=== PATIENT | female | born 1990 | race Caucasian/White ===

== ENCOUNTER 2018-10-21 14:54 | Outpatient (CLI) | payer MEDICAID, SELFPAY ==
[2018-10-21 15:44] LABS: Glucose,1 Hr (Glucola) 98 mg/dL (80-140)
[2018-10-21 16:13] LABS: Abs Immature Grans 0.05 k/cumm (0.0-0.09); Absolute Monocyte Count 0.74 k/cumm (0.11-0.7); Basophils % 0.2; Eosinophils % 0.6; HGB 13.3 g/dL (12.0-15.5); Immature Grans % 0.4; Lymphocytes % 15.1; Mean Corp. HGB Concentration 33.3 g/dL (32.0-36.0); Mean Corpuscular Hemoglobin 29.4 pg (27.0-33.0); Mean Corpuscular Volume 88.5 fL (80-95); Mean Platelet Volume 9.7 fL (8.0-11.0); Monocytes % 5.9; Neutrophils % 77.8; Platelet Count 324 x1000/uL (130-400); RBC 4.52 m/cumm (4.00-5.20); RBC Distribution Width 13.3 % (11.7-14.6); White Blood Cell Count 12.62 k/cumm (4.4-10.8)
[2018-10-21 16:22] LABS: Absolute Basophil Count 0.03 k/cumm (0.0-0.2); Absolute Eosinophil Count 0.08 k/cumm (0.0-0.7); Absolute Lymphocyte Count 1.91 k/cumm (1.2-3.4); Absolute Neutrophil Count 9.82 k/cumm (1.2-6.7)
[2018-10-21 16:39] LABS: TSH (W/Ref FT4) 2.97 uIU/mL (0.36-3.74)
[2018-10-24 10:31] LABS: Hepatitis C Ab w Rflx HCV PCR Negative (NEGAT)
[2018-10-24 10:35] LABS: HIV-1/2 Ag & Ab Screen Negative (NEGAT); Hepatitis B Surface Ag Negative (NEGAT)
[2018-10-24 11:05] LABS: Varicella IgG Antibody Positive
[2018-10-24 12:43] LABS: Rubella IgG Ab (UVM) Positive
== END 2018-10-21 15:14 ==
PROVIDERS: PCP Family Medicine; Visit Provider Advanced Practice Midwife
DX: Z34.91 Encounter for supervision of normal pregnancy, unspecified, first trimester (principal); Z11.59 Encounter for screening for other viral diseases; Z11.4 Encounter for screening for human immunodeficiency virus [HIV]; Z01.84 Encounter for antibody response examination; Z11.3 Encounter for screening for infections with a predominantly sexual mode of transmission
CPT/HCPCS: 36415; 80307; 82950; 86787; 86803; 86850; 86900; 86901; 87340; 87389; 87491; 87591; 84443; 85025; 86762; 87086

== ENCOUNTER 2018-10-21 16:19 | Outpatient (REF) | payer MEDICAID, SELFPAY ==
[2018-10-21 17:17] LABS: *AMPHETAMINES SCREEN URINE Negative (Negative); *BARBITURATES SCREEN URINE Negative (Negative); *BENZODIAZEPINES SCREEN URINE Negative (Negative); Cannabinoids THC Negative (Negative); Cocaine Screen,Urine Negative (Negative); METHADONE URINE SCREEN Negative (Negative); OPIATES URINE SCREEN Negative (Negative)
[2018-10-21 17:18] LABS: Tricyclic Antidepressants Negative (Negative)
[2018-10-24 14:54] LABS: Chlamydia Result Negative; GC Result Negative; Specimen Description CERVIX
[2018-10-27 08:59] LABS: Buprenorphine Negative; Norbuprenorphine Negative
== END 2018-10-21 16:39 ==
LOC: NCHCN 16:19
PROVIDERS: PCP Family Medicine; Visit Provider Advanced Practice Midwife
DX: Z34.91 Encounter for supervision of normal pregnancy, unspecified, first trimester (principal); Z11.3 Encounter for screening for infections with a predominantly sexual mode of transmission
CPT/HCPCS: 80307; 87491; 87591; 87086

== ENCOUNTER 2018-12-05 01:01 | Outpatient (CLI) | payer MEDICAID, SELFPAY ==
--- NOTE | 2018-12-05 13:55 | DI.US_ITS ---
EXAM: US OB 2-3 TRIMESTER CLINICAL HISTORY: routine pnc Z34.90 SUPERVISION NORMAL . TECHNIQUE: Ultrasound performed using standard protocol. COMPARISON: No exams were available for comparison FINDINGS: There is a single living intrauterine gestation. Estimated gestational age is 19 weeks 3 days. No f etal or placental abnormalities are identified. Please refer to the obstetrical ultrasound worksheet for complete details. IMPRESSION: Single living intrauterine gestation. The estimated sonographic age is 19 weeks 3 days.
[2018-12-06 15:36] LABS: Syphilis Total Ab w/Reflex Nonreactive (Nonreactive)
== END 2018-12-05 01:21 ==
PROVIDERS: PCP Family Medicine; Visit Provider Advanced Practice Midwife
DX: Z34.92 Encounter for supervision of normal pregnancy, unspecified, second trimester (principal)
CPT/HCPCS: 36415; 76805; 86780

== ENCOUNTER 2019-02-17 00:20 | Outpatient (CLI) | payer MEDICAID, SELFPAY ==
[2019-02-17 14:41] LABS: Abs Immature Grans 0.07 k/cumm (0.0-0.09); Absolute Basophil Count 0.01 k/cumm (0.0-0.2); Absolute Eosinophil Count 0.08 k/cumm (0.0-0.7); Absolute Lymphocyte Count 1.59 k/cumm (1.2-3.4); Absolute Monocyte Count 0.76 k/cumm (0.11-0.7); Absolute Neutrophil Count 7.88 k/cumm (1.2-6.7); Basophils % 0.1; Eosinophils % 0.8; HCT 34.2 % (36.0-46.0); HGB 11.6 g/dL (12.0-15.5); Immature Grans % 0.7; Lymphocytes % 15.3; Mean Corp. HGB Concentration 33.9 g/dL (32.0-36.0); Mean Corpuscular Hemoglobin 30.8 pg (27.0-33.0); Mean Corpuscular Volume 90.7 fL (80-95); Monocytes % 7.3; Neutrophils % 75.8; Platelet Count 282 x1000/uL (130-400); RBC 3.77 m/cumm (4.00-5.20); RBC Distribution Width 13.7 % (11.7-14.6); White Blood Cell Count 10.39 k/cumm (4.4-10.8)
[2019-02-17 14:52] LABS: Glucose,1 Hr (Glucola) 100 mg/dL (80-140)
== END 2019-02-17 00:40 ==
PROVIDERS: PCP Family Medicine; Visit Provider Obstetrics & Gynecology
DX: Z34.93 Encounter for supervision of normal pregnancy, unspecified, third trimester (principal)
CPT/HCPCS: 36415; 82950; 85025

== ENCOUNTER 2019-02-17 16:21 | Outpatient (REF) | payer MEDICAID, SELFPAY ==
--- NOTE | 2019-02-17 15:40 | SKI_PTH ---
PATIENT: Carolina Neal LOC: [facility] U#:[id number] AGE/SX: 28/F ROOM: RE02/17/[address]: Raimundo Lipscomb MD : 1990 BED: DIS: 02/17/2019 SPEC #: [id number] RECD: 02/17/19 18:03 STATUS: NELLY REQ #: [id number] ISAIAH: 02/17/19 15:[address]: Raimundo Lipscomb DEPT: Surgical Specimen RECD BY: Elizabeth Melendez ENTERED: 02/17/19 18:04 SP TYPE: ROSIBEL ARMSTRONG DR: Caleb Newman Tissues: 1 - SKIN BIOPSY(SHAVE/PUNCH) Procedures: SKIN LEVEL 4 Comments: [id number]
== END 2019-02-17 16:41 ==
LOC: LBN 16:21
PROVIDERS: PCP Family Medicine; Visit Provider Obstetrics & Gynecology
DX: D22.61 Melanocytic nevi of right upper limb, including shoulder (principal)
CPT/HCPCS: 88305

== ENCOUNTER 2019-03-31 14:25 | Outpatient (REF) | payer MEDICAID, SELFPAY | END 2019-03-31 14:45 | LOC: LBN 14:25 | PROVIDERS: PCP Family Medicine; Visit Provider Obstetrics & Gynecology Gynecology | DX: Z34.93 Encounter for supervision of normal pregnancy, unspecified, third trimester (principal); Z36.85 Encounter for antenatal screening for Streptococcus B | CPT/HCPCS: 87081 ==

== ENCOUNTER 2019-04-07 21:21 | Outpatient (REF) | payer MEDICAID, SELFPAY ==
[2019-04-07 16:56] LABS: *AMPHETAMINES SCREEN URINE Negative (Negative); *BARBITURATES SCREEN URINE Negative (Negative); *BENZODIAZEPINES SCREEN URINE Negative (Negative); Cannabinoids THC Negative (Negative); Cocaine Screen,Urine Negative (Negative); METHADONE URINE SCREEN Negative (Negative); OPIATES URINE SCREEN Negative (Negative)
[2019-04-07 17:30] LABS: Tricyclic Antidepressants Negative (Negative)
[2019-04-12 12:49] LABS: Buprenorphine Negative; Norbuprenorphine Negative
== END 2019-04-07 21:41 ==
LOC: LBN 21:21
PROVIDERS: PCP Family Medicine; Visit Provider Obstetrics & Gynecology
DX: Z34.93 Encounter for supervision of normal pregnancy, unspecified, third trimester (principal)
CPT/HCPCS: 80307

== ENCOUNTER 2019-04-14 11:24 | Observation (INO) | payer MEDICAID, SELFPAY ==
--- NOTE | 2019-04-14 12:37 | W.PM.HP.N ---
Date of service: 04/14/19 Time of Service: 12:37 Assessment and Plan Assessment and plan (1) Breech presentation: Status: Acute Assessment and plan: Breech presentation at term. This was confirmed by ultrasound today. Please refer to operative note. History of Present Illness History of Present Illness Chief Complaint: Breech presentation Narrative: 28-year-old G2, P1 at 37.0 weeks is brought in today for external cephalic version secondary to breech presentation. has been uncomplicated today. Review of Systems All systems reviewed & are unremarkable except as noted in HPI and below PFSH Social History (Updated 03/10/19 @ 18:46 by Avis Danielle MD) Smoking/Tobacco Use Status: Never Alcohol Intake: former (socially prior to knowledge of .) Substance use type: does not use Household members: spouse, children and other Details: H-Alexis, S-Farooq Female Reproductive History Menstrual Age of Menarche: 15 Duration of menses: 3-5 days control method: none History History 2 Para 1 Hx # Term Pregnancies 1 Multiple births 0 Hx # Pregnancies 0 Ectopic pregnancies 0 AB induced 0 Hx Number of Living Children AB spontaneous 0 Past Pregnancies Del. Date GA/Weeks # Outcome Route Wgt Sex Labor Lgth Anesthesia Location Prov Complic Unknown 03/25/17 41 No Successful vaginal 8 lb 7 oz Male 16 hrs a. anupama Delivery Date: On 03/10/19 @ 18:41 Avis Danielle Farooq Delivery Date: 03/25/17 On 10/21/18 @ 14:07 RUY RUBY iol for postdates yet pt started on her own, thus w/o pitocin. Meds Home Medications and Allergies Home Medications Medication Instructions Recorded Confirmed Type PNV cmb#95-ferrous fumarate-FA 1 ea PO 10/09/16 04/07/19 History [Prenavite] cholecalciferol (vitamin D3) 400 unit PO DAILY 05/06/17 04/07/19 History [Vitamin D3] Allergies Allergy/AdvReac Type Severity Reaction Status Date / Time LACTOSE INTOLERANT AdvReac Unknown BLOATING, Uncoded 04/07/19 15:58 GAS , UNCOMFORTABLE FEELING Exam GI Other: Bedside ultrasound confirms hollis breech presentation. Please refer to operative note
--- NOTE | 2019-04-14 12:39 | W.PM.OP ---
Date of service: 04/14/19 Time of Service: 12:39 Operative Note Operative Note DATE OF PROCEDURE: 04/14/19 PRE-OP DIAGNOSIS: 37 weeks. Hira breech presentation POST-OP DIAGNOSIS: other Unstable lie PROCEDURE: External cephalic version SURGEON: Raimundo Lipscomb ANESTHESIA: none ESTIMATED BLOOD LOSS: 0 PATHOLOGY: none sent Patient's condition: stable Procedure Description: After informed consent regarding risks of surgery the patient was placed in supine position. An ultrasound was performed. Prior to the onset of the procedure the lie change dramatically from breech to vertex and then back to breech presentation. No uterine relaxant was required. External cephalic version was performed easily with the head did not engage in the pelvis and the fetus returned nearly immediately to breech presentation post procedure. Due to unstable lie my recommendation would be to not proceed with ECV at this point. We will plan to bring her in at 39 weeks for induction of labor and reassess presentation at that time. If required ECV will be performed followed immediately by induction of labor. Patient agreed to this plan of care and was discharged home. NST was reactive post procedure.
== END 2019-04-14 12:45 | disposition home or self-care (01) ==
PROVIDERS: Admitting Provider Obstetrics & Gynecology; PCP Family Medicine; Visit Provider Obstetrics & Gynecology
DX: O32.0XX0 Maternal care for unstable lie, not applicable or unspecified (principal); Z3A.37 37 weeks gestation of pregnancy; O26.893 Other specified pregnancy related conditions, third trimester
CPT/HCPCS: 59412; 59025; 99223; G0378

== ENCOUNTER 2019-04-28 07:15 | Inpatient (IN) | payer MEDICAID, SELFPAY ==
[2019-04-28 08:16] LABS: HCT 37.1 % (36.0-46.0); HGB 12.5 g/dL (12.0-15.5); Mean Corp. HGB Concentration 33.7 g/dL (32.0-36.0); Mean Corpuscular Hemoglobin 30.7 pg (27.0-33.0); Mean Corpuscular Volume 91.2 fL (80-95); Mean Platelet Volume 9.7 fL (8.0-11.0); Platelet Count 251 x1000/uL (130-400); RBC 4.07 m/cumm (4.00-5.20); RBC Distribution Width 13.6 % (11.7-14.6); White Blood Cell Count 9.55 k/cumm (4.4-10.8)
[2019-04-28] MEDS: Lactated Ringers 1,000 ML 125 ML IV ×3 (09:34→15:11)
--- NOTE | 2019-04-28 13:04 | W.PM.HP.N ---
Date of service: 04/28/19 Time of Service: 18:53 Assessment and Plan Assessment and plan (1) Breech presentation: Status: Acute (2) Polyhydramnios: Status: Acute Assessment and plan: Plan to proceed with external cephalic version. If successful will proceed with induction of labor. Informed consent was obtained. As mentioned previously AVA was measured to be 28 cm. We discussed concerns for rupture of membranes and cord prolapse and that primary section may be needed for unstable lie if ECV is unsuccessful. History of Present Illness History of Present Illness Chief Complaint: Breech presentation at term. Narrative: 28 year old @ 39 weeks admitted for external cephalic version and induction of labor. The patient underwent external cephalic version approximately 2 weeks ago but lie was unstable and the fetus converted back to breech presentation. The patient was noted to have polyhydramnios with an AVA of 30. The remainder of her care has been uncomplicated. She had been counseled on the risks related to external cephalic version. Ultrasound prior to procedure confirmed hollis breech presentation and AVA measured 28 cm today. Review of Systems All systems reviewed & are unremarkable except as noted in HPI and below PFSH Social History (Updated 03/10/19 @ 18:46 by Avis Danielle MD) Smoking/Tobacco Use Status: Never Alcohol Intake: former (socially prior to knowledge of .) Substance use type: does not use Household members: spouse, children and other Details: H-Alexis, S-Farooq Female Reproductive History Menstrual Age of Menarche: 15 Duration of menses: 3-5 days control method: none History History 2 Para 1 Hx # Term Pregnancies 1 Multiple births 0 Hx # Pregnancies 0 Ectopic pregnancies 0 AB induced 0 Hx Number of Living Children AB spontaneous 0 Past Pregnancies Del. Date GA/Weeks # Outcome Route Wgt Sex Labor Lgth Anesthesia Location Prov Complic Unknown 03/25/17 41 No Successful vaginal 8 lb 7 oz Male 16 hrs a. anupama Delivery Date: On 03/10/19 @ 18:41 Avis Danielle Farooq Delivery Date: 03/25/17 On 10/21/18 @ 14:07 RUY RUBY iol for postdates yet pt started on her own, thus w/o pitocin. Meds Home Medications and Allergies Home Medications Medication Instructions Recorded Confirmed Type PNV cmb#95-ferrous fumarate-FA 1 ea PO 10/09/16 04/20/19 History [Prenavite] cholecalciferol (vitamin D3) 400 unit PO DAILY 05/06/17 04/28/19 History [Vitamin D3] Allergies Allergy/AdvReac Type Severity Reaction Status Date / Time LACTOSE INTOLERANT AdvReac Unknown BLOATING, Uncoded 04/20/19 11:14 GAS , UNCOMFORTABLE FEELING Results Labs Result diagrams: 04/28/19 08:05 Labs: Laboratory Results - last 24 hr 04/28/19 04/28/19 08:05 08:05 WBC 9.55 RBC 4.07 Hgb 12.5 Hct 37.1 MCV 91.2 MCH 30.7 MCHC 33.7 RDW 13.6 Plt Count 251 MPV 9.7 Patient ABO/Rh A Positive Antibody Screen Negative
[2019-04-28] MEDS: Sodium Citrate 30 ML CUP PO (13:45)
[2019-04-28] MEDS: ceFAZolin 2 GM/50 ML BAG IVPB (13:45)
[2019-04-28 15:21] VITALS: BP 104/35; PULSE 86; RESP 20; TEMP 36.3; O2SAT 94
[2019-04-28 15:26] VITALS: BP 114/54; PULSE 84; RESP 26; O2SAT 93
[2019-04-28 15:31] VITALS: BP 113/49; PULSE 76; RESP 22; O2SAT 93
[2019-04-28 15:36] VITALS: BP 132/51; PULSE 71; RESP 23; O2SAT 94
[2019-04-28 15:49] VITALS: BP 108/47; PULSE 61; RESP 19; TEMP 36.4; O2SAT 93
[2019-04-28] MEDS: Ondansetron 4 MG/2 ML VIAL IVP (18:05)
[2019-04-28] MEDS: Normal Saline Flush 10 ML SYR IVP (18:07)
--- NOTE | 2019-04-28 19:01 | W.PM.OP ---
Date of service: 04/28/19 Time of Service: 10:00 Operative Note Operative Note DATE OF PROCEDURE: 04/28/19 PRE-OP DIAGNOSIS: 1) 39 weeks. Breech Presentation 2) Polyhydramnios POST-OP DIAGNOSIS: same PROCEDURE: External cephalic version SURGEON: Raimundo Lipscomb ANESTHESIA: none ESTIMATED BLOOD LOSS: 0 COMPLICATIONS: None Patient was transported to: floor Patient's condition: stable Findings: 1. Ultrasound confirmed hollis breech presentation prior to procedure. AVA measures 28 cm. Procedure Description: A preprocedure NST was reactive. The fetus was confirmed to be in hollis breech presentation on ultrasound. The breech was elevated from the pelvis and head was flexed. Rotation to longitudinal lie and cephalic presentation was accomplished but the head remained unengaged. Pitocin was started for induction of labor and an abdominal binder was placed in an attempt to maintain position. Postprocedure NST was reactive. The procedure was tolerated well.
--- NOTE | 2019-04-28 19:06 | PGE_ITS ---
Date of Service Date of service: 04/28/19 Time of Service: 13:00 Assessment and Plan Assessment and plan (1) Breech presentation: Status: Acute (2) Polyhydramnios: Status: Acute (3) Unstable lie of fetus: Status: Acute Assessment and plan: I reviewed my findings with the patient and her leeanne cowan. Currently the fetus is in transverse back down presentation. I discussed with the patient that this is not a deliverable presentation and that repeat attempts at ECV appear to be futile at this point due to the instability of the lie and polyhydramnios. I discussed concerns about cord prolapse should rupture of membranes occur. My recommendation at this point would be to proceed with primary section. Risks of surgery including hemorrhage, infection and injury to other organ such as bowel and bladder were discussed with the patient. All questions were answered to the patient satisfaction and consent for surgery was obtained. Subjective Subjective Interval history since last seen: I did reevaluate the patient. The NST remained category 1 from the time of her ECV. On initial exam cervix was 1 to 2 cm. Patient reports moderate contractions. A repeat ultrasound showed the fetus to be in transverse back down presentation with head on maternal right. Objective Objective Clinical Data: Vital Signs Temperature 97.5 F L 04/28/19 15:49 Pulse 61 04/28/19 15:49 Respiratory Rate 19 04/28/19 15:49 Blood Pressure 108/47 L 04/28/19 15:49 Pulse Oximetry 93 L 04/28/19 15:49 Respiratory End-tidal CO2 29 04/28/19 15:49 Oxygen Delivery Method Room Air 04/28/19 15:49 Oxygen Flow Rate 0 04/28/19 15:49 Pain Level 0 04/28/19 15:49 Intake & Output 04/27/19 04/28/19 04/28/19 23:59 11:59 23:59 Intake Total 1554.167 / 1554.167 Output Total 900 / 900 Balance 654.167 / 654.167 Weight 214 lb Intake: IV 1554.167 / 1554.167 Output: Urine 100 / 100 Estimated Blood Loss 800 / 800 Other: Urine Color Pale Yellow Emesis Description None Laboratory Results WBC 9.55 k/cumm (4.4-10.8) 04/28/19 08:05 RBC 4.07 m/cumm (4.00-5.20) 04/28/19 08:05 Hgb 12.5 g/dL (12.0-15.5) 04/28/19 08:05 Hct 37.1 % (36.0-46.0) 04/28/19 08:05 MCV 91.2 fL (80-95) 04/28/19 08:05 MCH 30.7 pg (27.0-33.0) 04/28/19 08:05 MCHC 33.7 g/dL (32.0-36.0) 04/28/19 08:05 RDW 13.6 % (11.7-14.6) 04/28/19 08:05 Plt Count 251 x1000/uL (130-400) 04/28/19 08:05 MPV 9.7 fL (8.0-11.0) 04/28/19 08:05 Patient ABO/Rh A Positive 04/28/19 08:05 Antibody Screen Negative 04/28/19 08:05
--- NOTE | 2019-04-28 19:17 | ROE_ITS ---
Date of service: 04/28/19 Time of Service: 16:00 Operative Note Operative Note DATE OF PROCEDURE: 04/28/19 PRE-OP DIAGNOSIS: 1. Unstable lie at 39 weeks gestation. 2. Failed ECV 3. Polyhydramnios POST-OP DIAGNOSIS: same PROCEDURE: Primary section SURGEON: Raimundo Lipscomb ASSISTING SURGEON: Catalino Yuen ANESTHESIA: spinal ESTIMATED BLOOD LOSS: 800 PATHOLOGY: none sent COMPLICATIONS: None Patient was transported to: PACU Patient's condition: stable Findings: 1. Fetus in transverse back down presentation 2. Mild uterine atony Procedure Description: The patient was taken to the operating room and after adequate spinal anesthesia was obtained the patient was placed in supine position with a left lateral tilt. The patient was prepped and draped in the usual sterile manner. A Pfannenstiel incision was made with a #10 scalpel. Sharp dissection was carried down to the underlying layer of fascia. The fascia was incised in the midline and the incision was extended laterally in either direction with Gomez scissors. The superior and inferior aspects of the fascial incision were dissected off the underlying layer rectus muscles using both blunt and sharp dissection. The rectus muscles were divided in the midline and the peritoneum was entered sharply. The peritoneal incision was extended superiorly and inferiorly with blunt and sharp dissection. The fetus was noted to be in transverse presentation and breech version was performed prior to hysterotomy. The lower uterine segment was incised in a transverse manner with a scalpel. The incision was carried laterally in either direction via stretch. The infant was in footling breech presentation at this point. The was delivered atraumatically. The mouth and nose were suctioned. The cord was clamped and cut. The was handed off to the awaiting convertible power shovel operator. The placenta was manually extracted. The uterus was cleared of all clots and debris. The hysterotomy was closed with a running locked stitch of #1 chromic. A second indicating layer of #1 chromic in a Lambert stitch was used to complete the repair. The bladder flap was reapproximated with a running stitch of 3-0 Vicryl. The peritoneum was closed with a running stitch of 2-0 Vicryl. The subfascial space was thoroughly inspected and was noted to be hemostatic. The fascia was closed with a running stitch of 0 Vicryl. The subcutaneous tissues were closed with interrupted sutures of 3-0 Vicryl. The skin was closed with a running subcuticular stitch of 4-0 Monocryl and Dermabond was applied. The procedure was concluded at this point. Sponge, lap and needle counts were correct at the conclusion of the procedure. The patient tolerated the procedure well and was transferred to PACU in stable condition.
[2019-04-28] MEDS: Ketorolac 30 MG/ML VIAL IVP (21:20)
[2019-04-28] MEDS: Lactated Ringers 1,000 ML 120 ML IV (22:57)
[2019-04-29] MEDS: Ketorolac 30 MG/ML VIAL IVP ×2 (03:42→10:02)
[2019-04-29 06:55] LABS: HGB 11.4 g/dL (12.0-15.5); Mean Corp. HGB Concentration 33.5 g/dL (32.0-36.0); Mean Corpuscular Hemoglobin 30.9 pg (27.0-33.0); Mean Corpuscular Volume 92.1 fL (80-95); Mean Platelet Volume 9.6 fL (8.0-11.0); Platelet Count 237 x1000/uL (130-400); RBC 3.69 m/cumm (4.00-5.20); RBC Distribution Width 13.6 % (11.7-14.6); White Blood Cell Count 14.06 k/cumm (4.4-10.8)
--- NOTE | 2019-04-29 07:18 | W.PM.PROGNOT ---
Date of Service Date of service: 04/29/19 Time of Service: 07:18 Assessment and Plan Assessment and plan (1) S/P section: Status: Acute Assessment and plan: POD1 s/p primary section for unstable lie. Routine post op care. Encourage ambulation Remove zhang catheter May shower this morning. Subjective Subjective Interval history since last seen: Doing well. Pain well controlled. Has not yet ambulated. Tolerating regular diet. Objective Objective Clinical Data: Abnormal lab results 04/29/19 Range/Units 06:40 WBC 14.06 H D (4.4-10.8) k/cumm RBC 3.69 L (4.00-5.20) m/cumm Hgb 11.4 L (12.0-15.5) g/dL Hct 34.0 L (36.0-46.0) % Vital Signs Temperature 97.5 F L 04/28/19 15:49 Pulse 61 04/28/19 15:49 Respiratory Rate 19 04/28/19 15:49 Blood Pressure 108/47 L 04/28/19 15:49 Pulse Oximetry 93 L 04/28/19 15:49 Respiratory End-tidal CO2 29 04/28/19 15:49 Oxygen Delivery Method Room Air 04/28/19 15:49 Oxygen Flow Rate 0 04/28/19 15:49 Pain Level 0 04/29/19 03:42 Intake & Output 04/28/19 04/28/19 04/29/19 11:59 23:59 11:59 Intake Total 2254.167 / 2254.167 Output Total 900 / 900 Balance 1354.167 / 1354.167 Weight 214 lb Intake: IV 2254.167 / 2254.167 Output: Urine 100 / 100 Estimated Blood Loss 800 / 800 Other: Urine Color Pale Yellow Emesis Description None Laboratory Results WBC 14.06 k/cumm (4.4-10.8) H D 04/29/19 06:40 RBC 3.69 m/cumm (4.00-5.20) L 04/29/19 06:40 Hgb 11.4 g/dL (12.0-15.5) L 04/29/19 06:40 Hct 34.0 % (36.0-46.0) L 04/29/19 06:40 MCV 92.1 fL (80-95) 04/29/19 06:40 MCH 30.9 pg (27.0-33.0) 04/29/19 06:40 MCHC 33.5 g/dL (32.0-36.0) 04/29/19 06:40 RDW 13.6 % (11.7-14.6) 04/29/19 06:40 Plt Count 237 x1000/uL (130-400) 04/29/19 06:40 MPV 9.6 fL (8.0-11.0) 04/29/19 06:40 Patient ABO/Rh A Positive 04/28/19 08:05 Antibody Screen Negative 04/28/19 08:05
--- NOTE | 2019-04-29 10:57 | W.PM.PROGNOT ---
Date of Service Date of service: 04/29/19 Time of Service: 10:58 Assessment and Plan Assessment and plan (1) Postop check: Status: Acute Assessment and plan: incision has a bandage on and no bleeding. uterus is u-2 and firm. is ambulating well and stable. Objective Objective Clinical Data: Abnormal lab results 04/29/19 Range/Units 06:40 WBC 14.06 H D (4.4-10.8) k/cumm RBC 3.69 L (4.00-5.20) m/cumm Hgb 11.4 L (12.0-15.5) g/dL Hct 34.0 L (36.0-46.0) % Vital Signs Temperature 97.5 F L 04/28/19 15:49 Pulse 61 04/28/19 15:49 Respiratory Rate 19 04/28/19 15:49 Blood Pressure 108/47 L 04/28/19 15:49 Pulse Oximetry 93 L 04/28/19 15:49 Respiratory End-tidal CO2 29 04/28/19 15:49 Oxygen Delivery Method Room Air 04/28/19 15:49 Oxygen Flow Rate 0 04/28/19 15:49 Pain Level 4 04/29/19 10:02 Intake & Output 04/28/19 04/28/19 04/29/19 11:59 23:59 11:59 Intake Total 2254.167 / 2254.167 2049 Output Total 900 / 900 Balance 1354.167 / 4496.749 5465 / 2050 Weight 214 lb Intake: IV 2254.167 / 2254.167 2049 Output: Urine 100 / 100 Estimated Blood Loss 800 / 800 Other: Urine Color Pale Yellow Emesis Description None Laboratory Results WBC 14.06 k/cumm (4.4-10.8) H D 04/29/19 06:40 RBC 3.69 m/cumm (4.00-5.20) L 04/29/19 06:40 Hgb 11.4 g/dL (12.0-15.5) L 04/29/19 06:40 Hct 34.0 % (36.0-46.0) L 04/29/19 06:40 MCV 92.1 fL (80-95) 04/29/19 06:40 MCH 30.9 pg (27.0-33.0) 04/29/19 06:40 MCHC 33.5 g/dL (32.0-36.0) 04/29/19 06:40 RDW 13.6 % (11.7-14.6) 04/29/19 06:40 Plt Count 237 x1000/uL (130-400) 04/29/19 06:40 MPV 9.6 fL (8.0-11.0) 04/29/19 06:40 Patient ABO/Rh A Positive 04/28/19 08:05 Antibody Screen Negative 04/28/19 08:05
[2019-04-29] MEDS: oxyCODONE 5 mg/Acetaminophen 325 mg TAB PO ×3 (14:08→22:30)
[2019-04-29] MEDS: Ibuprofen 600 MG TAB PO (18:15)
[2019-04-30] MEDS: oxyCODONE 5 mg/Acetaminophen 325 mg TAB PO ×3 (04:00→17:06)
[2019-04-30] MEDS: Docusate Sodium 100 MG CAP PO ×2 (07:53→17:07)
[2019-04-30] MEDS: Ibuprofen 600 MG TAB PO ×2 (07:53→21:26)
--- NOTE | 2019-04-30 11:18 | W.PM.PROGNOT ---
Date of Service Date of service: 04/30/19 Time of Service: 11:18 Subjective Subjective Interval history since last seen: The patient reports that she developed a headache this morning. The headache is absent when she is laying down but when she sits up she has a headache in the frontal area. Her neck is supple and there is no nuchal rigidity noted. There is no fevers or chills. Her incision is healing well, abdomen soft nontender uterus is U- 2. Reflexes are normal at 2+ and she has minimal pitting edema. Assessment plan patient is postop day #2, suspect she may have a spinal headache, no evidence of infection. We will check a CBC and will talk with anesthesia to see if this is the case. She may be a candidate for caffeine treatment and possibly a blood patch. She also reports that her bleeding is minimal and otherwise she is doing well. Objective Objective Clinical Data: Vital Signs Temperature 97.5 F L 04/28/19 15:49 Pulse 61 04/28/19 15:49 Respiratory Rate 19 04/28/19 15:49 Blood Pressure 108/47 L 04/28/19 15:49 Pulse Oximetry 93 L 04/28/19 15:49 Respiratory End-tidal CO2 29 04/28/19 15:49 Oxygen Delivery Method Room Air 04/28/19 15:49 Oxygen Flow Rate 0 04/28/19 15:49 Pain Level 3 04/30/19 08:53 Intake & Output 04/29/19 04/29/19 04/30/19 11:59 23:59 11:59 Intake Total 2049 Balance 2049 Intake: IV 2049 Laboratory Results WBC 14.06 k/cumm (4.4-10.8) H D 04/29/19 06:40 RBC 3.69 m/cumm (4.00-5.20) L 04/29/19 06:40 Hgb 11.4 g/dL (12.0-15.5) L 04/29/19 06:40 Hct 34.0 % (36.0-46.0) L 04/29/19 06:40 MCV 92.1 fL (80-95) 04/29/19 06:40 MCH 30.9 pg (27.0-33.0) 04/29/19 06:40 MCHC 33.5 g/dL (32.0-36.0) 04/29/19 06:40 RDW 13.6 % (11.7-14.6) 04/29/19 06:40 Plt Count 237 x1000/uL (130-400) 04/29/19 06:40 MPV 9.6 fL (8.0-11.0) 04/29/19 06:40 Patient ABO/Rh A Positive 04/28/19 08:05 Antibody Screen Negative 04/28/19 08:05
[2019-04-30] MEDS: Acetaminophen 325 MG TAB 650 MG PO (11:44)
[2019-04-30 11:54] LABS: Abs Immature Grans 0.04 k/cumm (0.0-0.09); Absolute Basophil Count 0.02 k/cumm (0.0-0.2); Absolute Eosinophil Count 0.07 k/cumm (0.0-0.7); Absolute Lymphocyte Count 1.76 k/cumm (1.2-3.4); Absolute Monocyte Count 0.94 k/cumm (0.11-0.7); Absolute Neutrophil Count 7.52 k/cumm (1.2-6.7); Basophils % 0.2; Eosinophils % 0.7; HCT 34.9 % (36.0-46.0); HGB 11.5 g/dL (12.0-15.5); Immature Grans % 0.4 %; Mean Corpuscular Hemoglobin 31.1 pg (27.0-33.0); Mean Corpuscular Volume 94.3 fL (80-95); Mean Platelet Volume 9.7 fL (8.0-11.0); Monocytes % 9.1; Neutrophils % 72.6; Platelet Count 218 x1000/uL (130-400); RBC Distribution Width 14.2 % (11.7-14.6); White Blood Cell Count 10.35 k/cumm (4.4-10.8)
[2019-05-01] MEDS: Ibuprofen 600 MG TAB PO (05:26)
[2019-05-01] MEDS: oxyCODONE 5 mg/Acetaminophen 325 mg TAB PO (05:26)
[2019-05-01] MEDS: Docusate Sodium 100 MG CAP PO ×2 (05:27→13:28)
[2019-05-01 07:05] LABS: HCT 34.7 % (36.0-46.0); HGB 11.4 g/dL (12.0-15.5); Mean Corp. HGB Concentration 32.9 g/dL (32.0-36.0); Mean Corpuscular Hemoglobin 31.1 pg (27.0-33.0); Mean Corpuscular Volume 94.8 fL (80-95); Mean Platelet Volume 9.6 fL (8.0-11.0); Platelet Count 219 x1000/uL (130-400); RBC 3.66 m/cumm (4.00-5.20); White Blood Cell Count 9.56 k/cumm (4.4-10.8)
--- NOTE | 2019-05-01 09:13 | W.PM.PROGNOT ---
Date of Service Date of service: 05/01/19 Time of Service: 09:13 Assessment and Plan Assessment and plan (1) S/P section: Status: Acute Assessment and plan: Add incentive spirometer today. Will monitor O2 sats today. If no improvement through the day would consider CTA. Clinical suspicion for PE is low at this point however. (2) Spinal headache complicating labor and delivery, delivered, : Status: Acute Assessment and plan: I discussed her management with anesthesia. Will continue to follow conservatively for now. She did have some improvement with caffeine yesterday so will start her on Fioricet. Subjective Subjective Interval history since last seen: Patient continues to complain about a severe headache that increases with ambulation and when upright. In addition she reports mild dyspnea on exertion. Oxygen saturations have been between 92 and 95%. Incisional pain is well controlled. Exam GI Other: Incision is C/D/I Objective Objective Clinical Data: Abnormal lab results 04/30/19 05/01/19 Range/Units 11:43 06:50 RBC 3.70 L 3.66 L (4.00-5.20) m/cumm Hgb 11.5 L 11.4 L (12.0-15.5) g/dL Hct 34.9 L 34.7 L (36.0-46.0) % Absolute Neutrophils 7.52 H (1.2-6.7) k/cumm Absolute Monocytes 0.94 H (0.11-0.7) k/cumm Vital Signs Temperature 97.5 F L 04/28/19 15:49 Pulse 61 04/28/19 15:49 Respiratory Rate 19 04/28/19 15:49 Blood Pressure 108/47 L 04/28/19 15:49 Pulse Oximetry 93 L 04/28/19 15:49 Respiratory End-tidal CO2 29 04/28/19 15:49 Oxygen Delivery Method Room Air 04/28/19 15:49 Oxygen Flow Rate 0 04/28/19 15:49 Pain Level 8 05/01/19 05:26 Laboratory Results WBC 9.56 k/cumm (4.4-10.8) 05/01/19 06:50 RBC 3.66 m/cumm (4.00-5.20) L 05/01/19 06:50 Hgb 11.4 g/dL (12.0-15.5) L 05/01/19 06:50 Hct 34.7 % (36.0-46.0) L 05/01/19 06:50 MCV 94.8 fL (80-95) 05/01/19 06:50 MCH 31.1 pg (27.0-33.0) 05/01/19 06:50 MCHC 32.9 g/dL (32.0-36.0) 05/01/19 06:50 RDW 14.0 % (11.7-14.6) 05/01/19 06:50 Plt Count 219 x1000/uL (130-400) 05/01/19 06:50 MPV 9.6 fL (8.0-11.0) 05/01/19 06:50 Immature Gran % 0.4 % 04/30/19 11:43 Neutrophils % 72.6 04/30/19 11:43 Lymphocytes % 17.0 04/30/19 11:43 Monocytes % 9.1 04/30/19 11:43 Eosinophils % 0.7 04/30/19 11:43 Basophils % 0.2 04/30/19 11:43 Absolute Neutrophils 7.52 k/cumm (1.2-6.7) H 04/30/19 11:43 Absolute Lymphocytes 1.76 k/cumm (1.2-3.4) 04/30/19 11:43 Absolute Monocytes 0.94 k/cumm (0.11-0.7) H 04/30/19 11:43 Absolute Eosinophils 0.07 k/cumm (0.0-0.7) 04/30/19 11:43 Absolute Basophils 0.02 k/cumm (0.0-0.2) 04/30/19 11:43 Patient ABO/Rh A Positive 04/28/19 08:05 Antibody Screen Negative 04/28/19 08:05
[2019-05-01] MEDS: Butalbital/Acetaminophen/Caffeine 50/325/40 TAB PO ×2 (10:36→14:37)
== END 2019-05-01 15:35 | disposition home or self-care (01) | DRG 788 ==
PROVIDERS: Obstetrics & Gynecology; Admitting Provider Obstetrics & Gynecology; PCP Family Medicine; Visit Provider Obstetrics & Gynecology
PROC: 10D00Z1 Extraction of Products of Conception, Low, Open Approach (ICD-10-PCS; CPT 59514; principal; 2019-04-28 14:00)
DX: O64.8XX0 Obstructed labor due to other malposition and malpresentation, not applicable or unspecified (principal); O32.8XX0 Maternal care for other malpresentation of fetus, not applicable or unspecified; Z37.0 Single live birth; Z3A.39 39 weeks gestation of pregnancy; O75.89 Other specified complications of labor and delivery; O74.5 Spinal and epidural anesthesia-induced headache during labor and delivery
CPT/HCPCS: 59412; 59514; 36415; 85027; 86850; 86900; 86901; 99223; 99231; 99233; NC; 85025; G0378; J0131; J0690; J1100; J1885; J2370; J2405; J2590; J3010; J3490

== ENCOUNTER 2019-11-08 15:16 | Outpatient (REF) | payer MEDICAID, SELFPAY ==
--- NOTE | 2019-11-08 14:15 | PAPFT_PTH ---
PATIENT: Carolina Neal LOC: [facility] U#:[id number] AGE/SX: 28/F ROOM: RE11/08/[address]: Raimundo Lipscomb MD : 1990 BED: DIS: 11/08/2019 SPEC #: [id number] RECD: 11/09/19 09:35 STATUS: NELLY REQ #: [id number] ISAIAH: 11/08/19 14:[address]: Raimundo Lipscomb DEPT: [facility] Cytology RECD BY: Yeny Rollins ENTERED: 11/09/19 09:36 SP TYPE: PAPFT OTHR DR: Caleb Newman Tissues: 1 - CX/ENDOCX FOR PAP SMEARS Procedures: PAP THIN PREP/[facility] Screening Comments: [id number]
== END 2019-11-08 15:36 ==
LOC: LBN 15:16
PROVIDERS: PCP Family Medicine; Visit Provider Obstetrics & Gynecology
DX: R87.616 Satisfactory cervical smear but lacking transformation zone (principal)
CPT/HCPCS: 88142

== ENCOUNTER 2021-04-05 07:58 | Emergency (ER) | payer MEDICAID, SELFPAY ==
[2021-04-05] VITALS (17 sets, daily range): BP systolic 102–121; BP diastolic 61–79; PULSE 80–114; RESP 16–23; TEMP 36.6; O2SAT 93–100
--- NOTE | 2021-04-05 08:30 | DI.RAD_ITS ---
Exam(s) XR PORTABLE CHEST AP EXAM: XR PORTABLE CHEST AP CLINICAL HISTORY: cough, covid positive 2 weeks ago TECHNIQUE: 2D digital imaging was performed. COMPARISON: No exams were available for comparison FINDINGS: LUNGS: Clear. No pleural abnormality seen. HEART: Normal. MEDIASTINUM: Normal. BONES: Unremarkable. IMPRESSION: No acute pulmonary findings. DATA REPOSITORY: RADIATION DOSE DELIVERED:
--- NOTE | 2021-04-05 08:31 | W.ED.GENAD ---
Discharge Plan Disposition Patient Disposition: HOME Condition: Stable Discharge Details Clinical Impression: Sinusitis, acute Primary Care Provider: Caleb Newman ED Provider: Bigg Savage Home Meds and New Rx's Prescriptions: New amoxicillin-pot clavulanate [Augmentin] 875-125 mg tablet 1 tab PO BID Qty: 13 RF: 0 Continued multivitamin Tablet 1 tab PO DAILY RF: 0 ascorbate calcium (vitamin C) 500 mg tablet 500 mg PO DAILY RF: 0 vitamin B complex [B Complex-Vitamin B12] Tablet 1 tab PO DAILY RF: 0 cholecalciferol (vitamin D3) [Vitamin D3] 400 UNIT capsule 5,000 unit PO DAILY RF: 0 ibuprofen 200 mg Capsule 400 mg PO PRN PRNRF: 0 acetaminophen [Acetaminophen Extra Strength] 500 mg Tablet 500 mg PO PRN PRNRF: 0 Discharge Instructions Instructions: Sinusitis (ED) Additional Instructions: Please take full course of antibiotic as prescribed. Please drink plenty of fluids to stay hydrated. Allow for plenty of rest. You should maintain home isolation until you have had no symptoms for 24 hours. Please take ibuprofen over the counter. Take 600mg by mouth every 6 hours as needed for pain. Please take acetaminophen (tylenol) - 650mg every 6 hours by mouth as needed for pain. Please contact your primary care physician to arrange follow-up. Return to the ER immediately for any worsening or new concerning symptoms. Medical Decision Making 30-year-old female here with sinus congestion, sore throat, fever and headache over the past few days. Patient tested positive for Covid 2 weeks ago and had a few days of symptoms but then resolved. Patient saturating well in no respiratory distress. Normotensive but tachycardic on arrival. Patient has no neck stiffness or signs of meningitis. Patient appeared dehydrated on arrival and IV fluid bolus was administered. Heart rate improved significantly with IV fluid. Labs reviewed and leukocytosis noted. Considered strep pharyngitis, as patient has friend was recently strep positive. Rapid strep test negative. Suspect sinusitis. Given severity of symptoms, leukocytosis and persistent fever, I will initiate treatment with antibiotic. Initial dose of Augmentin was provided here and scription was sent to her pharmacy. Consider prolonged COVID-19 and recommended isolation until symptoms resolve. Usual customary discharge instructions were reviewed with patient. He was encouraged to return immediately should symptoms worsen or she develop new concerning symptoms. She was encouraged to follow-up with her primary care physician. Exam was medical screening exam was performed. Patient stable for discharge. HPI General Mode of arrival: ambulatory. Date/Time Provider Initiated Documentation: 04/05/21 08:05. Limitations to Documentation: no limitations. Information obtained by: patient. HPI Narrative: 30-year-old female presents with chief complaint of generally not feeling well. Patient notes she was diagnosed with Covid 2 weeks ago, she had symptoms that were fairly mild for a few days and then symptoms resolved. She was symptom-free until this week when she notes that she has had fever, sinus pressure, bilateral ear pain and sore throat as well as body aches. Symptoms have been present for the past 3 to 4 days. She has been controlling fever with ibuprofen but notes this morning it was 104. She denies significant cough. She does have some headache. No neck stiffness or pain. Patient notes she had bilateral axillary red itchy rash a few days ago but that this has resolved. No abdominal pain. She has had some nausea. No urinary symptoms. Patient denies tick bite the past year. Related Data Home Medications Medication Instructions Recorded Confirmed cholecalciferol (vitamin D3) 5,000 unit PO DAILY 05/06/17 04/05/21 [Vitamin D3] multivitamin 1 tab PO DAILY 11/08/19 04/05/21 ascorbate calcium (vitamin C) 500 500 mg PO DAILY 03/13/21 04/05/21 mg tablet vitamin B complex 1 tab PO DAILY 03/13/21 04/05/21 acetaminophen [Acetaminophen Extra 500 mg PO PRN PRN 04/05/21 04/05/21 Strength] amoxicillin-pot clavulanate 1 tab PO BID #13 tab 04/05/21 [Augmentin] ibuprofen 400 mg PO PRN PRN 04/05/21 04/05/21 Previous Rx's Medication Instructions Recorded amoxicillin-pot clavulanate 1 tab PO BID #13 tab 04/05/21 [Augmentin] Allergies Allergy/AdvReac Type Severity Reaction Status Date / Time LACTOSE INTOLERANT AdvReac Unknown BLOATING, Uncoded 04/05/21 08:08 GAS , UNCOMFORTABLE FEELING General Stated Complaint: Fever EVRA: 3 Review of Systems All systems reviewed & are unremarkable except as noted in HPI and below Constitutional Constitutional: Reports body ache(s), Reports fever(s) and Reports headache(s) ENT Ears, Nose, Mouth, and Throat: Denies dysphagia, Denies ear discharge, Reports otalgia, Reports headache(s), Reports nasal congestion, Denies neck pain and Reports sore throat Cardiovascular Cardiovascular: Reports dyspnea Respiratory Respiratory: Reports dyspnea Gastrointestinal Gastrointestinal: Denies dysphagia, Reports nausea and Denies vomiting Genitourinary Genitourinary: Denies dysuria Musculoskeletal Musculoskeletal: Denies neck pain Integumentary/Breasts Skin/Breast: Reports as per HPI Neurologic Neurologic: Reports headache(s) PFSH All Active Problems (Updated 04/05/21 @ 09:44 by Bigg Savage MD) Sinusitis, acute (Acute) Breast pain, left (Acute) Screening for malignant neoplasm of cervix (Acute) Diastasis recti (Acute) Pt's 2nd complicated by polyhydramnios. Medical History (Updated 04/05/21 @ 09:44 by Bigg Savage MD) Breast mass 3cm at 6 o'clock position beneath areola on R breast. Gen Surg referral submitted. Breast mass, right Breech presentation Polyhydramnios Unstable lie of fetus Surgical History (Updated 03/14/21 @ 20:26 by Avis Danielle MD) Biopsy of breast (07/08/17) right breast-benign S/P section 04/28/19. Breech presentation. 39w NAHOMI. 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 Date GA/Weeks # Outcome Route Wgt Sex Labor Lgth Anesthesia Location Prov Complic Unknown 03/25/17 41 No Successful vaginal 3827.186 g Male 16 hrs a. anupama 04/28/19 39 No Successful 3940.584 g Female [facility] Dr [place] Delivery Date: Avis Dumont Delivery Date: 03/25/17 iol for postdates yet pt started on her own, thus w/o pitocin. Jona Delgado Delivery Date: 04/28/19 Double footling Breech C/S. Polyhydramnios. 'Benita'. Avis Danielle Exam Const General: cooperative and no acute distress HENMT Ears: external ears normal, mastoids normal, no periauricular adenopathy and TM abnormal bulging bilaterally; not with effusion and not erythematous Face and sinus: face symmetric and sinus tenderness Mouth: moist mucous membranes Throat: posterior oropharynx abnormal erythema; no edema and no exudates Eyes Conjunctivae: normal conjunctivae Sclera: normal sclerae Neck Neck: full ROM, trachea midline and supple Resp Auscultation: clear to auscultation bilaterally, no rales, no rhonchi and no wheezes Cardio Rate: regular rate and not tachycardic Rhythm: regular rhythm GI Palpation: soft, not firm, no guarding, no masses, not rigid and nontender Skin General skin exam: no rashes or lesions noted Neuro General: patient alert, patient awake, patient oriented x3 and tone normal Extrem General: no edema Psych Appearance: grossly normal Mental Status: mental status grossly normal Speech and Movement: speech and movement normal Course Vital Signs Vital signs: Vital Signs Temperature 36.6 C 04/05/21 08:04 Pulse 114 H 04/05/21 08:04 Respiratory Rate 18 04/05/21 08:04 Blood Pressure 121/79 04/05/21 08:04 Pulse Oximetry 98 04/05/21 08:04 Temperature 36.6 C 04/05/21 08:04 Temperature Source Temporal Artery Scan 04/05/21 08:04 Pulse 114 H 04/05/21 08:04 Respiratory Rate 18 04/05/21 08:04 Respiratory Effort Non-Labored 04/05/21 08:11 Blood Pressure 121/79 04/05/21 08:04 Blood Pressure Position Sitting 04/05/21 08:04 Pulse Oximetry 98 04/05/21 08:04 Oxygen Delivery Method Room Air 04/05/21 08:04 Oxygen Flow Rate 0 04/05/21 08:04
[2021-04-05 08:33] LABS: Abs Immature Grans 0.05 10^3/uL (0.0-0.06); Absolute Eosinophil Count 0.02 10^3/uL (0.0-0.7); Basophils % 0.2; Eosinophils % 0.1; HCT 41.7 % (36.0-46.0); HGB 13.8 g/dL (11.2-15.7); Immature Grans % 0.3; Lactate 0.6 mmol/L (0.6-1.4); Lymphocytes % 7.9; MCH 29.1 pg (27.0-33.0); MCHC 33.1 % (32.0-36.0); MCV 87.8 fL (80-95); Monocytes % 7.6; Neutrophils % 83.9; Nucleated RBC 0 %; Platelet Count 319 10^3/uL (130-400); RBC 4.75 10^6/uL (3.93-5.22); RDW 12.6 % (11.7-14.6); RDW-SD 40.9 fL; WBC 17.12 10^3/uL (4.4-10.8)
[2021-04-05] MEDS: Lactated Ringers 1,000 ML 1000 ML IV (08:34)
[2021-04-05 08:39] LABS: Absolute Basophil Count 0.03 10^3/uL (0.0-0.2); Absolute Lymphocyte Count 1.35 10^3/uL (1.2-3.4); Absolute Neutrophil Count 14.36 10^3/uL (1.2-6.7)
[2021-04-05 08:53] LABS: ALT 23 U/L (14-59); AST 15 U/L (15-37); Albumin 3.5 g/dL (3.4-5.0); Alkaline Phosphatase 67 U/L (46-116); Anion Gap 11.1 mmol/L (3-11); BUN 10 mg/dL (7-18); Bilirubin, Total 0.6 mg/dL (0.2-1.0); CO2 21.9 mmol/L (21.0-32.0); CREATININE 0.8 mg/dL (0.55-1.02); Calcium 8.9 mg/dL (8.5-10.1); Chloride 102 mmol/L (98-107); Glucose 108 mg/dL (74-106); Potassium 3.6 mmol/L (3.5-5.1); Sodium 135 mmol/L (136-145); Total Protein 8.3 g/dL (6.4-8.2)
[2021-04-05 08:58] LABS: Troponin I < 50 ng/L (<or=60)
--- NOTE | 2021-04-05 09:21 | DI.VRAD_ITS ---
PROCEDURE INFORMATION: Exam: XR Chest Exam date and time: 04/05/2021 8:34 AM Age: 30 years old Clinical indication: Other: Cough, covid positive 2 weeks ago TECHNIQUE: Imaging protocol: XR of the chest. Views: 1 view. COMPARISON: No relevant prior studies available. FINDINGS: Lungs: Unremarkable. No consolidation. Pleural spaces: Unremarkable. No pleural effusion. No pneumothorax. Heart/Mediastinum: Unremarkable. No cardiomegaly. Bones/joints: Unremarkable. IMPRESSION: No acute findings. Dictated and Authenticated by: Norma Miranda MD. Ordering:HERMELINDA Pride MD
[2021-04-05] MEDS: Amoxicillin 875/Clav. 125 TAB PO (09:51)
--- NOTE | 2021-04-07 19:49 | W.ED.FU ---
Follow Up Plan: pt made aware regarding + group c strep, on augmentin, feeling improved
== END 2021-04-05 09:59 | disposition home or self-care (01) ==
PROVIDERS: Emergency Provider Student in an Organized Health Care Education/Training Program; PCP Family Medicine
DX: J02.0 Streptococcal pharyngitis (principal); R06.02 Shortness of breath; Z86.16 Personal history of COVID-19; R09.81 Nasal congestion; J02.9 Acute pharyngitis, unspecified; D72.829 Elevated white blood cell count, unspecified
CPT/HCPCS: 36415; 80053; 87880; 96360; 99283; 71045; 83605; 84484; 85025; 87081

== ENCOUNTER 2021-04-09 00:48 | Outpatient (CLI) | payer MEDICAID, SELFPAY ==
--- NOTE | 2021-04-09 07:45 | DI.MAMMO_ITS ---
Exam(s) MAMMO DIAGNOSTIC BI EXAM: MAMMO DIAGNOSTIC BI CLINICAL HISTORY: L sided breast pain,N64.4 TECHNIQUE: Mammograms were interpreted according to the usual protocol including computer analysis w [employer], a [employer] CAD system, tomosynthesis and C-view imaging. COMPARISON: No exams were available for comparison FINDINGS: The breasts are composed of scattered fibroglandular densities, Breast Density category B. The breast tissue is symmetric bilaterally. No suspicious masses or suspicious microcalcifications are seen. No skin thickening or abnormal axillary lymph nodes are seen. IMPRESSION: BI-RADS Category 1, Negative mammogram Yearly screening mammography is recommended at age 40 or sooner if clinically indicated. Breast Density - Category B, scattered fibroglandular densities. A negative radiographic report should not delay biopsy if a dominant or clinically suspicious mass is present. Up to ten percent of cancers are not identified on mammography. A negative report may reinforce clinical impression. Adenosis and dense breasts may obscure an underlying neoplasm. False positive reports average 6 to 10%. Patient will receive a letter notifying them of these results.
== END 2021-04-09 01:08 ==
PROVIDERS: PCP Family Medicine; Visit Provider Obstetrics & Gynecology Gynecology
DX: N64.4 Mastodynia (principal)
CPT/HCPCS: 77062; 77066; G0279

== ENCOUNTER → 2021-11-03 02:22 | Outpatient (CLI) | payer MEDICAID, SELFPAY ==
--- NOTE | 2021-11-03 | DI.RAD_ITS ---
Exam(s) XR ANKLE LT COMPLETE EXAM: XR ANKLE LT COMPLETE CLINICAL HISTORY: LT ANKLE SPRAIN, S93.402D TECHNIQUE: 2D digital imaging was performed of the left ankle. Three images were obtained. AP, lat eral and oblique views were obtained. COMPARISON: No exams were available for comparison FINDINGS: BONES: No acute fracture is present. No bony destructive lesion is seen. JOINTS:The ankle mortise is normally aligned. SOFT TISSUE: Normal. IMPRESSION: Unremarkable radiographs of the left ankle. DATA REPOSITORY: RADIATION DOSE DELIVERED:
== END ==
PROVIDERS: PCP Family Medicine; Visit Provider Family Medicine
DX: S93.402D Sprain of unspecified ligament of left ankle, subsequent encounter (principal); X58.XXXD Exposure to other specified factors, subsequent encounter
CPT/HCPCS: 73610

== ENCOUNTER 2022-06-05 02:54 | Outpatient (CLI) | payer MEDICAID, SELFPAY ==
[2022-06-05 14:59] LABS: Abs Immature Grans 0.03 10^3/uL (0.0-0.06); Absolute Basophil Count 0.02 10^3/uL (0.0-0.2); Absolute Eosinophil Count 0.07 10^3/uL (0.0-0.7); Absolute Lymphocyte Count 2.17 10^3/uL (1.2-3.4); Absolute Monocyte Count 0.79 10^3/uL (0.1-0.8); Absolute Neutrophil Count 8.15 10^3/uL (1.2-6.7); Basophils % 0.2; Eosinophils % 0.6; HCT 39.7 % (36.0-46.0); HGB 13.4 g/dL (11.2-15.7); Immature Grans % 0.3; Lymphocytes % 19.3; MCH 29.4 pg (27.0-33.0); MCHC 33.8 % (32.0-36.0); MCV 87 fL (80-95); MPV 8.9 fL (8.0-11.0); Neutrophils % 72.6; Platelet Count 267 10^3/uL (130-400); RBC 4.56 10^6/uL (3.93-5.22); RDW 12.7 % (11.7-14.6); RDW-SD 40.5 fL; WBC 11.23 10^3/uL (4.4-10.8)
[2022-06-05 15:45] LABS: Glucose,1 Hr (Glucola) 110 mg/dL (80-140)
[2022-06-07 15:17] LABS: HIV-1/2 Ag & Ab Screen Negative (Negative)
[2022-06-08 10:46] LABS: Rubella IgG Ab (UVM) Positive (See Note); Varicella IgG Antibody Positive (See Note)
[2022-06-08 11:25] LABS: Hepatitis B Surface Ag Negative (Negative)
[2022-06-08 11:42] LABS: Hepatitis C Ab w Rflx HCV PCR Negative (Negative)
[2022-06-08 19:08] LABS: Syphilis IgG w/Reflex Nonreactive (Nonreactive)
== END 2022-06-05 02:55 | disposition home or self-care (01) ==
LOC: LBO 02:54
PROVIDERS: PCP Family Medicine; Visit Provider Advanced Practice Midwife
DX: Z34.91 Encounter for supervision of normal pregnancy, unspecified, first trimester (principal); Z3A.11 11 weeks gestation of pregnancy
CPT/HCPCS: 36415; 82950; 86787; 86803; 86850; 86900; 86901; 87340; 87389; 85025; 86762; 86780

== ENCOUNTER 2022-06-05 17:10 | Outpatient (REF) | payer MEDICAID, SELFPAY ==
--- NOTE | 2022-06-05 13:25 | PAPFT_PTH ---
PATIENT: Carolina Neal LOC: [facility] U#:[id number] AGE/SX: 31/F ROOM: RE06/05/[address]: Zoe Martinez CNM : 1990 BED: DIS: 06/05/2022 SPEC #: [id number] RECD: 06/07/22 07:50 STATUS: NELLY REQ #: [id number] ISAIAH: 06/05/22 13:[address]: Zoe Martinez DEPT: [facility] Cytology RECD BY: Yeny Rollins ENTERED: 06/07/22 07:51 SP TYPE: PAPFT OTHR DR: Caleb Newman Tissues: 1 - CX/ENDOCX FOR PAP SMEARS Procedures: PAP THIN PREP/[facility] Screening HPV DNA PROBE Comments: [id number] (CHLAMYDIA/GC)
[2022-06-05 17:49] LABS: *AMPHETAMINES SCREEN URINE Negative (Negative); *BARBITURATES SCREEN URINE Negative (Negative); *BENZODIAZEPINES SCREEN URINE Negative (Negative); Cannabinoids THC Negative (Negative); Cocaine Screen,Urine Negative (Negative); METHADONE URINE SCREEN Negative (Negative); OPIATES URINE SCREEN Negative (Negative)
[2022-06-05 17:55] LABS: Tricyclic Antidepressants Negative (Negative)
[2022-06-08 14:02] LABS: Chlamydia Result Negative (Negative); GC Result Negative (Negative)
[2022-06-11 14:38] LABS: Buprenorphine Negative ng/mL (Cutoff: 5.0); Norbuprenorphine Negative ng/mL (Cutoff: 2.5)
== END 2022-06-05 17:11 | disposition home or self-care (01) ==
LOC: LBN 17:10
PROVIDERS: PCP Family Medicine; Visit Provider Advanced Practice Midwife
DX: Z11.3 Encounter for screening for infections with a predominantly sexual mode of transmission; Z12.4 Encounter for screening for malignant neoplasm of cervix; Z34.91 Encounter for supervision of normal pregnancy, unspecified, first trimester; Z3A.11 11 weeks gestation of pregnancy; Z11.51 Encounter for screening for human papillomavirus (HPV)
CPT/HCPCS: 80307; 80348; 87491; 87591; 88142; 87086; 87624

== ENCOUNTER 2022-08-07 00:38 | Outpatient (CLI) | payer MEDICAID, SELFPAY ==
--- NOTE | 2022-08-07 07:15 | DI.US_ITS ---
Exam(s) US OB 2-3 TRIMESTER EXAM: US OB 2-3 TRIMESTER CLINICAL HISTORY: morphology,z34.92. TECHNIQUE: Transabdominal obstetrical ultrasound performed. COMPARISON: US POCUS EXAM from 05/25/2022 FINDINGS: Number of fetuses: One. position: Vertex. Placental grade: 0 Placental location: Anterior no evidence of previa. BIOMETRIC DATA: BPD: 50mm = 21+1 weeks HC: 194mm = 21+5 weeks AC: 165mm = 21+4 weeks FL: 36mm = 21+2 weeks Cisterna Magna: 6 mm Cerebellum: 2 cm EFW: 425 grms 96% Composite Age: 21+3 weeks EDC by US: 15 December 2022 Heart Rate: 145BPM Amniotic fluid : Amount of fluid is within normal limits. ANATOMICAL SURVEY: Four-chambered heart: Unremarkable. LVOT: Unremarkable. RVOT: Unremarkable. Left-sided stomach: Unremarkable. urinary bladder: Unremarkable. Bilateral kidneys: Unremarkable. Three-vessel cord: Unremarkable. Cord insertion: Unremarkable. Posterior fossa:Unremarkable. ventricles: Unremarkable. nose: Unremarkable. lips: Unremarkable. palate: Unremarkable. spine: Unremarkable. Two arms and two legs: Unremarkable. IMPRESSION: 1. Single live intrauterine gestation as above. 2. Normal anatomic survey. DATA REPOSITORY:
== END 2022-08-07 00:58 ==
LOC: DI 00:39
PROVIDERS: PCP Family Medicine; Visit Provider Advanced Practice Midwife
DX: Z34.92 Encounter for supervision of normal pregnancy, unspecified, second trimester (principal)
CPT/HCPCS: 76805

== ENCOUNTER 2022-10-02 01:21 | Outpatient (CLI) | payer MEDICAID, SELFPAY ==
[2022-10-02 12:15] LABS: Abs Immature Grans 0.05 10^3/uL (0.0-0.06); Absolute Basophil Count 0.02 10^3/uL (0.0-0.2); Absolute Eosinophil Count 0.03 10^3/uL (0.0-0.7); Absolute Lymphocyte Count 1.56 10^3/uL (1.2-3.4); Absolute Monocyte Count 0.59 10^3/uL (0.1-0.8); Absolute Neutrophil Count 8.32 10^3/uL (1.2-6.7); Basophils % 0.2; Eosinophils % 0.3; HCT 37.9 % (36.0-46.0); HGB 12.7 g/dL (11.2-15.7); Immature Grans % 0.5; Lymphocytes % 14.8; MCH 29.4 pg (27.0-33.0); MCHC 33.5 % (32.0-36.0); MCV 88 fL (80-95); MPV 9.2 fL (8.0-11.0); Monocytes % 5.6; Neutrophils % 78.6; Platelet Count 275 10^3/uL (130-400); RBC 4.32 10^6/uL (3.93-5.22); RDW 13.7 % (11.7-14.6); RDW-SD 44.1 fL; WBC 10.57 10^3/uL (4.4-10.8)
[2022-10-02 13:53] LABS: Glucose,1 Hr (Glucola) 102 mg/dL (80-140)
== END 2022-10-02 01:22 | disposition home or self-care (01) ==
LOC: LBO 01:22
PROVIDERS: PCP Family Medicine; Visit Provider Obstetrics & Gynecology
DX: Z34.93 Encounter for supervision of normal pregnancy, unspecified, third trimester (principal); Z3A.28 28 weeks gestation of pregnancy
CPT/HCPCS: 36415; 82950; 85025

== ENCOUNTER 2022-12-01 14:06 | Outpatient (REF) | payer MEDICAID, SELFPAY | END 2022-12-01 14:07 | disposition home or self-care (01) | LOC: LBN 14:06 | PROVIDERS: PCP Family Medicine; Visit Provider Obstetrics & Gynecology Gynecology | DX: Z34.93 Encounter for supervision of normal pregnancy, unspecified, third trimester (principal); Z3A.37 37 weeks gestation of pregnancy; Z36.85 Encounter for antenatal screening for Streptococcus B | CPT/HCPCS: 87081 ==

== ENCOUNTER 2022-12-14 04:56 | Outpatient (CLI) | payer MEDICAID, SELFPAY ==
[2022-12-14 14:12] LABS: HCT 38.4 % (36.0-46.0); HGB 13.3 g/dL (11.2-15.7); MCH 30.5 pg (27.0-33.0); MCHC 34.6 % (32.0-36.0); MCV 88 fL (80-95); MPV 10.2 fL (8.0-11.0); Platelet Count 246 10^3/uL (130-400); RBC 4.36 10^6/uL (3.93-5.22); RDW 13.9 % (11.7-14.6); RDW-SD 44.4 fL; WBC 9.82 10^3/uL (4.4-10.8)
== END 2022-12-14 04:57 | disposition home or self-care (01) ==
LOC: LBO 04:56
PROVIDERS: PCP Family Medicine; Visit Provider Obstetrics & Gynecology Gynecology
DX: Z01.818 Encounter for other preprocedural examination (principal); Z98.891 History of uterine scar from previous surgery
CPT/HCPCS: 36415; 85027; 86850; 86900; 86901

== ENCOUNTER 2022-12-16 06:05 | Inpatient (IN) | payer MEDICAID, SELFPAY ==
[2022-12-16] VITALS (15 sets, daily range): BP systolic 101–126; BP diastolic 61–82; PULSE 58–106; RESP 15–18; TEMP 36.4–36.7; O2SAT 96–100; BMI 39.1
[2022-12-16] MEDS: Lactated Ringers 1,000 ML 200 ML IV (06:20)
[2022-12-16] MEDS: AZITHROMYCIN 500 MG in Normal Saline 250 ML 250 MG IVPB (06:20)
[2022-12-16] MEDS: Normal Saline Flush 10 ML SYR IVP ×3 (07:08→20:51)
--- NOTE | 2022-12-16 07:14 | W.ANESPRE ---
General Info Date of Service Date Performed: 12/16/22 Height: 5 ft 7 in Weight: 113.398 kg Body Mass Index (BMI): 39.1 Surgical Procedure: Operation Date: 12/16/22 07:40 Proposed Procedure Side Surgeon p Repeat Section, B/L Salpingectomy Meaghan Urban DO Meds Allergies and Home Medications Allergies Allergy/AdvReac Type Severity Reaction Status Date / Time LACTOSE INTOLERANT AdvReac Unknown BLOATING, Uncoded 12/14/22 11:12 GAS , UNCOMFORTABLE FEELING Home Medication Medication Instructions Recorded acetaminophen 500 mg tablet 500 mg PO PRN PRN 04/05/21 (Acetaminophen Extra Strength) prenat.vits,josé manuel,[id number] 1 tab PO DAILY 01/22/22 ascorbate calcium (vitamin C) 500 500 mg PO DAILY PRN 04/27/22 mg tablet Current Visit Medications: Current Medications Generic Name Dose Route Start Last Admin Trade Name Freq PRN Reason Stop Dose Admin Citric Acid/Sodium Citrate 30 ml 12/16/22 07:00 Sodium Citrate 30 Ml Cup PO PREOP IRENE Ringer's Solution 1,000 mls @ 200 mls/hr 12/16/22 06:15 12/16/22 06:20 IV 200 mls/hr INFUSION IRENE Administration Sodium Chloride 500 mls @ 0 mls/hr 12/16/22 06:05 Saline 500ml Bag IV PRN PRN As Directed Cefazolin Sodium/Dextrose 2 gm in 50 mls @ 100 mls/hr 12/16/22 06:15 Ancef Duplex IVPB PREOP IRENE Azithromycin 500 mg/ Sodium 250 mls @ 250 mls/hr 12/16/22 06:15 12/16/22 06:20 Chloride IVPB 250 mls/hr PREOP IRENE Administration IV Miscellaneous Supplies 1 each 12/16/22 06:15 Iv Access IV DIRECTED IRENE Sodium Chloride 0 ml 12/16/22 06:05 12/16/22 07:08 Normal Saline Flush 10 Ml Syr IVP 10 ml PRN PRN Administration PFSH Active Problems Active Problems: Problem Status Onset Code Request for sterilization Z30.2 Preop examination Z01.818 Previous section Z98.891 BMI 35.0-35.9,adult Z68.35 Z34.90 Constipation K59.00 Rectal mucosa prolapse K62.3 Diastasis recti M62.08 Medical History Medical History (Updated 12/09/22 @ 16:18 by Avis Danielle MD) Breast mass 3cm at 6 o'clock position beneath areola on R breast. Gen Surg referral submitted. Breast mass, right Breech presentation Polyhydramnios Unstable lie of fetus Surgical History Surgical History (Updated 06/05/22 @ 13:56 by Zoe Martinez CNM) Biopsy of breast (07/08/17) right breast-benign S/P section 04/28/19. Breech presentation. 39w EGA. F. Benita Tobacco Smoking/Tobacco Use Status: Never Alcohol Alcohol Intake: former Substance Use Substance use: Never Substance use type: does not use Prental History History 3 Para 2 Hx # Term Pregnancies 2 Multiple births 0 Hx # Pregnancies 0 Ectopic pregnancies 0 AB induced 0 Hx Number of Living Children AB spontaneous 0 Past Pregnancies Del. Date GA/Weeks # Preg Succ Route Wgt Sex Labor Lgth Anesthesia Location [facility] 03/25/17 41 No vaginal 3827.186 g Male 16 hrs a. anupama 04/28/19 39 No 3940.584 g Female [facility] [address] Delivery Date: 03/25/17 Last Updated by: Marce Young MD Farooq iol for postdates yet pt started on her own, thus w/o pitocin. Delivery Date: 04/28/19 Last Updated by: Avis Danielle M.D. Double footling Breech C/S. Polyhydramnios. 'Benita'. Vital Signs and Lab Results Vital Signs Most Recent Vital Signs in EMR: Most Recent Vital Signs Temp Pulse Resp BP Pulse Ox 36.7 C 106 H 18 126/82 100 12/16/22 06:40 12/16/22 06:40 12/16/22 06:40 12/16/22 06:40 12/16/22 06:40 Lab Results Blood Type / Crossmatch: Patient ABO/Rh A Positive 12/14/22 Antibody Screen NEGATIVE 12/14/22 Complete Blood Count: White Blood Count 9.82 10^3/uL (4.4-10.8) 12/14/22 13:45 Red Blood Count 4.36 10^6/uL (3.93-5.22) 12/14/22 13:45 Hemoglobin 13.3 g/dL (11.2-15.7) 12/14/22 13:45 Hematocrit 38.4 % (36.0-46.0) 12/14/22 13:45 Platelet Count 246 10^3/uL (130-400) 12/14/22 13:45 Complete Metabolic Panel: No Data to Display Liver Function Panel: No Data to Display Coagulation Panel: No Data to Display Cardiac Panel: No Data to Display Arterial Blood Gas: No Data to Display Venous Blood Gas: No Data to Display Pancreas Panel: No Data to Display Thyroid Panel: No Data to Display Infectious Disease: No Data to Display Blood Cultures: No Data to Display Toxicology Panel: No Data to Display Panel: No Data to Display Anesthesia Assessment and Plan Anesthesia History Personal History: No History of Anesthesia Complications Family History: No Family History of Anesthesia Complications Exercise Tolerance Exercise Tolerance: Metabolic Equivalents>4 Cardiac & Pulmonary Exam Cardiac Exam: Normal S1/S2 Heart Sounds Pulmonary Exam: Clear Bilateral Breath Sounds Implantable Cardiac Device Does patient have a Pacemaker or an ICD?: No Airway Exam Known Difficult Airway: No Mallampati Class: 2 Mouth Opening: Normal (> 3cm) Thyromental Distance: Greater than 3 cm Neck Range of Motion: Full ROM Neck Circumference: Normal Teeth Condition: Normal Dentition ASA Classification ASA Score: ASA 2 Emergency Case?: No NPO Status NPO Status: NPO Clears >2 hours, Solids >8 hours Status Status: Confirmed Anesthesia Plan Resuscitation Status: Full Code Anesthesia Technique: Spinal Anesthesia Airway Planned: Natural Airway Monitors Used: Standard Monitors
[2022-12-16] MEDS: ceFAZolin 2 GM/50 ML BAG IVPB (07:38)
--- NOTE | 2022-12-16 08:18 | FALL_PTH ---
PATIENT: Carolina Neal LOC: [facility] U#:[id number] AGE/SX: 31/F ROOM: OBS.303 RE12/16/[address]: Meaghan Urban DO : 1990 BED: A DIS: 12/18/2022 SPEC #: [id number] RECD: 12/16/22 12:43 STATUS: NELLY REQ #: [id number] ISAIAH: 12/16/22 08:[address]: Meaghan Urban DEPT: Surgical Specimen RECD BY: Elizabeth Melendez ENTERED: 12/16/22 12:44 SP TYPE: Fall OTHR DR: Caleb Newman Tissues: 1 - FALLOPIAN TUBE (STERILIZATION) 2 - FALLOPIAN TUBE (STERILIZATION) Procedures: GROSS AND MICRO LEVEL 2 Comments: [id number]
[2022-12-16] MEDS: Bupivacaine 0.25% Pres-Free 30 ML VIAL (08:27)
--- NOTE | 2022-12-16 09:07 | W.ANESPOSTOP ---
Postoperative Evaluation Date, Time and Location Date Performed: 12/16/22 Time Performed: 09:07 Patient Location: Day Surgery Unit Vital Signs Most Recent Imported Vital Signs: Most Recent Vital Signs Temp Pulse Resp BP Pulse Ox 36.7 C 106 H 18 126/82 100 12/16/22 06:40 12/16/22 06:40 12/16/22 06:40 12/16/22 06:40 12/16/22 06:40 Pain Score Most Recent Pain Score: Most Recent Pain Score Pain Level 0 12/16/22 06:40 Assessment Mental Status: Awake (Alert & Oriented to Patient Baseline) Airway and Respiratory Function: Patent airway with normal (patient baseline) respiratory exam Cardiovascular Function: Hemodynamically Stable Hydration Status: Adequately Hydrated Nausea & Vomiting: No Nausea or Vomiting Pain: Pt. Denies Any Pain Peripheral Nerve Block: Patient did not receive a nerve block Postoperative Comments:: No nausea or headache.
[2022-12-16] MEDS: diphenhydrAMINE 50 MG/ML VIAL 25 MG IVP (09:45)
[2022-12-16] MEDS: Lactated Ringers 1,000 ML 120 ML IV (13:00)
--- NOTE | 2022-12-16 13:21 | W.PM.OBCSECT ---
Date of service: 12/16/22 Time of Service: 13:41 Operative Note Operative Note Delivery Method: Scheduled and Repeat Previous LT Incision: Yes DATE OF PROCEDURE: 12/16/22 PRE-OP DIAGNOSES: 39w0d EGA. Elective scheduled repeat delivery. undesired fertility POST-OP DIAGNOSES: same PROCEDURE: repeat elective delivery with bilateral salpingectomy SURGEON: Avis Danielle Assisting Surgeon: Meaghan Urban Anesthesia: spinal Estimated blood loss (mL): 300 Pathology: other (cord blood collected and sent to lab. R and L fallopian tubes to pathology.) Complications: None Patient was transported to: floor Patient's condition: stable Indications: 31yo G3 now P3 female who was counseled regarding LILIANA during this . Patient has a history of rectal prolapse that she does not want to exacerbate with a vaginal . She also requested a permanent sterilization. Findings: Viabale male fetus in the vertex presentation. Clear amniotic fluid. Nl placenta, normal uterus. Normal ovaries and fallopian tubes. Parents intend to name their Marina Munoz Wt 7lb 12 oz. Apgars 8/9. Rectus sheath intact, thin and lax. Procedure Description: Patient was taken to the operating room she is placed in the sitting position and spinal anesthesia was administered without difficulty. She was then placed in the dorsal supine position with a leftward tilt. SCDs and a Garcia catheter to gravity drainage were in place. A vaginal prep with Betadine was performed and the patient was prepped and draped in the usual sterile fashion.Surgical timeout was performed. Preop antibiotics were administered. After a adequate level of anesthesia was achieved a Pfannenstiel skin incision was made approximately 2 cm superior to the pubic symphysis using a scalpel and the underlying subcutaneous tissue dissected using Bovie electrocautery to the level of the rectus fascia. The rectus fascia was then nicked in the midline and the fascial incision extended laterally using a combination of Bovie electrocautery and curved Gomez scissors. 2 Mian clamps were applied to the superior rectus fascia and the rectus fascia was dissected off of the underlying rectus muscles using Bovie electrocautery and blunt technique. A similar technique was carried out on the inferior rectus fascia. Rectus muscles were then in the midline and the peritoneum entered bluntly. The peritoneal incision was extended laterally using blunt technique. The vesicle-uterine peritoneum over lower uterine segment was incised with curved Gomez scissors and the bladder flap created digitally. Scalpel was used to incise the lower uterine segment in a transverse fashion. The uterine incision was extended bluntly and the amniotic sac was ruptured with clear amniotic fluid noted. A single gloved hand was placed into the uterine cavity and the head was successfully delivered through the uterine incision followed by the trunk and extremities with the assistance of fundal pressure. The cord was doubly clamped and cut and the infant handed off to the waiting pediatric team. The placenta was extracted with a combination of fundal massage and gentle cord traction. The uterus was exteriorized cleared of all clots and debris and the uterine incision reapproximated with a running lock suture of 0-PDS followed by a second imbricating suture of 0-PDSl. Final inspection of the uterine incision was performed and the incision was noted to be hemostatic. A Ligasure device was then used to clamp, cauterize and transect the mesosalpinx of the right fallopian tube to the uterine cornua where it was clamped, cauterized and transected from the uterine cornua. A similar techique was applied to the contralateral fallopian tube. The uterus was returned to the abdomen and the paracolic gutters cleared of all clots and debris. Uterine incision, bladder flap and the abdominal wall were inspected and noted to be hemostatic. The rectus fascia was reapproximated with a running suture of 0-PDS. space within the subcutaneous tissue closed with a running suture of 2-0 Vicryl. The skin incision was reapproximated with a subcuticular closure of 4-0 Vicryl. 20cc of 0.25% Marcaine was infiltrated in the subcutaneous tissue. Steri strips and a Mepilex dressing was applied. The uterus was massaged for any remaining clots and debris. The patient was transported to recovery area in stable condition. All sponge, lap, and needle counts correct x2. Mildred Gestational Age in Weeks/Days: 39 Weeks and 0 Days Gender: Male weight: 7 lb 11.812 oz
[2022-12-16] MEDS: Acetaminophen 325 MG TAB 650 MG PO ×2 (14:05→18:30)
[2022-12-16] MEDS: Ketorolac 30 MG/ML VIAL IVP ×2 (14:05→20:51)
[2022-12-16] MEDS: Docusate Sodium 100 MG CAP PO (14:05)
[2022-12-17] MEDS: Ketorolac 30 MG/ML VIAL IVP (02:40)
[2022-12-17] MEDS: Normal Saline Flush 10 ML SYR IVP (02:40)
[2022-12-17 02:49] VITALS: BP 120/82; PULSE 66; RESP 17; TEMP 37.1; O2SAT 99
[2022-12-17] MEDS: oxyCODONE 5 mg/Acetaminophen 325 mg TAB PO ×3 (07:45→18:28)
[2022-12-17] MEDS: Docusate Sodium 100 MG CAP PO ×2 (07:45→18:27)
[2022-12-17 09:00] VITALS: BP 119/72; PULSE 69; RESP 15; TEMP 36.7; O2SAT 98
[2022-12-17] MEDS: Ibuprofen 600 MG TAB PO ×2 (09:15→18:27)
[2022-12-17 09:21] LABS: Abs Immature Grans 0.07 10^3/uL (0.0-0.06); Absolute Basophil Count 0.02 10^3/uL (0.0-0.2); Absolute Eosinophil Count 0.05 10^3/uL (0.0-0.7); Absolute Lymphocyte Count 2.36 10^3/uL (1.2-3.4); Absolute Monocyte Count 0.81 10^3/uL (0.1-0.8); Absolute Neutrophil Count 7.52 10^3/uL (1.2-6.7); Basophils % 0.2; Eosinophils % 0.5; HCT 32.9 % (36.0-46.0); HGB 11.2 g/dL (11.2-15.7); Immature Grans % 0.6; Lymphocytes % 21.8; MCH 30.4 pg (27.0-33.0); MCV 89 fL (80-95); Monocytes % 7.5; Neutrophils % 69.4; Platelet Count 194 10^3/uL (130-400); RBC 3.69 10^6/uL (3.93-5.22); RDW 13.9 % (11.7-14.6); WBC 10.84 10^3/uL (4.4-10.8)
--- NOTE | 2022-12-17 11:31 | W.PM.OBPNV1 ---
Date of service: 12/17/22 Time of Service: 11:32 Assessment and Plan Assessment and plan (1) Status post repeat low transverse section: Status: Acute Assessment and plan: Postoperative day #1 status post repeat low transverse section with bilateral salpingectomy. Doing well. No issues or concerns. We will continue to increase her ambulation. Oral pain medication. Continue to advance diet and activity. Anticipate discharge home in 24 to 48 hours. Subjective Subjective Interval history: Patient seen and examined this morning. Doing well. Pain is well controlled. Working on breast-feeding. We will ambulate more today. baby status: Doing well and Nursing well Exam Physical Exam Vital signs: Temp Pulse Resp BP Pulse Ox 98.1 F 69 15 119/72 98 12/17/22 09:00 12/17/22 09:00 12/17/22 09:00 12/17/22 09:00 12/17/22 09:00 Vital Signs Reviewed: Yes Constitutional Constitutional: no acute distress HEENT Exam HEENT Exam: Normal Neck Exam Neck Exam: Normal Respiratory Exam Respiratory Exam: Normal Cardiovascular Exam Cardiovascular Exam: Normal Abdominal Exam Abdomen: Tender Comments: Nondistended, Mepilex dressing in place Fundal Exam Fundus: Below Umbilicus and Firm Extremities Exam Extremity Exam: Normal; negative Calf Tenderness or Edema Skin Exam Skin Exam: Normal Results Hemoglobin/Hematocrit: Hgb 11.2 g/dL (11.2-15.7) D 12/17/22 07:16 Hct 32.9 % (36.0-46.0) L 12/17/22 07:16 Abnormal Lab Findings: Abnormal Labs 12/17/22 07:16 WBC 10.84 H RBC 3.69 L Hct 32.9 L Absolute Neutrophils 7.52 H Absolute Monocytes 0.81 H
[2022-12-17 13:14] VITALS: BP 121/82; PULSE 80; RESP 16; TEMP 36.6; O2SAT 100
[2022-12-17 15:55] VITALS: BP 108/64; PULSE 82; RESP 16; TEMP 36.4; O2SAT 99
[2022-12-17 20:30] VITALS: BP 125/77; PULSE 67; RESP 18; TEMP 37.2
[2022-12-18] MEDS: oxyCODONE 5 mg/Acetaminophen 325 mg TAB PO ×3 (00:16→10:49)
[2022-12-18] MEDS: Ibuprofen 600 MG TAB PO ×2 (00:16→10:49)
[2022-12-18 08:00] VITALS: BP 126/82; PULSE 76; RESP 18; TEMP 36.5; O2SAT 97
--- NOTE | 2022-12-18 08:06 | W.PM.DSUDISC ---
Date of service: 12/18/22 Time of Service: 08:06 Discharge Plan Disposition Patient Disposition: Home Condition: Good Discharge Details Reason For Visit: Delivery Admit Date/Time: 12/16/22 06:05 Admit Provider: Meaghan Urban Attending Provider: Meaghan Urban Primary Care Provider: Caleb Newman Hospital Course Hospital Course: Pt was admitted the morning of 12/16/22 and underwent a repeat delivery with bilateral salpingectomy and delivered a viable male Viin the vertex presentation. Clear amniotic fluid. Nl placenta, normal uterus. Normal ovaries and fallopian tubes. Parents intend to name their infant Marina Munoz Wt 7lb 12 oz. Apgars 8/9. Rectus sheath intact, thin and lax. Postop course uncomplicated she was discharged home on postop day 2 tolerating a regular diet. Pain was controlled with occasional Percocet for severe pain ibuprofen and acetaminophen for moderate pain. She will follow-up in approximately 1 week for dressing removal. Home Meds and New Rx's Prescriptions: No Action prenat.vits,josé manuel,[id number] Tablet 1 tab PO DAILY ascorbate calcium (vitamin C) 500 mg tablet 500 mg PO DAILY PRN acetaminophen [Acetaminophen Extra Strength] 500 mg Tablet 500 mg PO PRN PRN Discharge Instructions Stand Alone Forms: BC Instructions, BC Discharge Instruc Activity:: Activity as Tolerated Equipment/Supplies:: No Equipment Needed Diet:: As Tolerated Discharge Orders Discharge Orders: Discharge Order (Routine); Ordered 12/18/22 Ordered By: Avis Danielle DS: Diagnosis Discharge Diagnosis (1) Status post repeat low transverse section: Status: Acute (2) Encounter for sterilization: Status: Acute
[2022-12-18] MEDS: Docusate Sodium 100 MG CAP PO (08:22)
== END 2022-12-18 12:45 | disposition home or self-care (01) | DRG 785 ==
PROVIDERS: Obstetrics & Gynecology Gynecology; Admitting Provider Obstetrics & Gynecology; PCP Family Medicine; Visit Provider Obstetrics & Gynecology
PROC: 10D00Z1 Extraction of Products of Conception, Low, Open Approach (ICD-10-PCS; CPT 59514; principal; 2022-12-16 07:30)
DX: O34.211 Maternal care for low transverse scar from previous cesarean delivery (principal); Z37.0 Single live birth; N85.8 Other specified noninflammatory disorders of uterus; O99.62 Diseases of the digestive system complicating childbirth; K62.3 Rectal prolapse; K59.00 Constipation, unspecified; Z87.891 Personal history of nicotine dependence; Z30.2 Encounter for sterilization; Z3A.39 39 weeks gestation of pregnancy
CPT/HCPCS: 59514; 58700; 85025; 88302; J0131; J0456; J0690; J1100; J1200; J1885; J2405; J3010